=== PATIENT | male | born 1990 | race Caucasian/White ===

== ENCOUNTER 2017-03-27 23:03 | Emergency (ER) | payer MEDICAID ==
[~2017-03-27 23:03] MED LIST: ALBUTEROL17 GM INH; BACTRIM DS TABL1 TA1 PO; BACTRIM DS TABL1 TAB PO; CLARITIN10 MG PO; DEPAKOTE (UD)250 M1 DOB; DEPAKOTE PO; DOXYCYCLINE PO; FAMOTIDINE PO; FLEXERIL10 MG PO; IBUPROFEN PO; KEFLEX PO; KEFLEX500 MG PO; LORATADINE; LORATADINE PO; LORTAB 5/500 TA1 TA1 PO; NO MEDICATIONS; PERCOCET5/325 PO; PHENERGAN PO; PROBIOTIC1 EACH PO; TETRACYCLINE PO; ULTRAM PO; VICODIN 5/500 T1 TAB PO; VISTARIL PO; VOLTAREN75 MG PO; ZEGERID 20 MG C1 CAP PO; ZEGERID OTC 201 EACH PO; ZITHROMAX500 MG PO; ZOVIRAX800 MG PO
[2017-03-28 00:21] LABS: URINE SOURCE CLEAN CATCH
[2017-03-28 00:29] LABS: URINE APPEARANCE CLEAR; URINE BILIRUBIN NEG (NEG); URINE BLOOD 1+ (NEG); URINE COLOR YELLOW; URINE GLUCOSE NEG (NEG); URINE KETONE TRACE (NEG); URINE LEUKOCYTE ESTERASE NEG (NEG); URINE NITRATE NEG (NEG); URINE PROTEIN 1+ (NEG); URINE SPECIFIC GRAVITY 1.016 (1.003-1.035)
[2017-03-28 00:32] LABS: URINE BACTERIA AUWI NEG (NEGATIVE); URINE SQUAMOUS EPITHELIAL CELL NONE SEEN /[HPF]; UWBCS1 AUWI 0-2 (0-5)
[2017-03-28 00:33] LABS: CULTURE INDICATED? NO
[2017-03-28 00:39] LABS: AMPHETAMINE POS (NEG); BARBITURATES NEG (NEG); BENZODIAZEPINES NEG (NEG); COCAINE NEG (NEG); MARIJUANA POS (NEG); OPIATES POS (NEG); TRICYCLIC ANTIDEPRESSANTS NEG (NEG); U METHADONE NEG (NEG)
[2017-03-28 00:45] LABS: BLOOD UREA NITROGEN 7 mg/dL (9-23); CALCIUM SERUM 9.2 mg/dL (8.4-10.2); CARBON DIOXIDE 24 mmol/L (22-31); CHLORIDE 101 mmol/L (100-111); DEPAKENE (VALPROIC ACID) 47 ug/mL (50-125); GLUCOSE FASTING 79 mg/dL (70-110); POTASSIUM 3.8 mmol/L (3.5-5.1); SODIUM 136 mmol/L (135-145)
[2017-03-28 00:47] LABS: ALCOHOL BLOOD <5 mg/dL (0)
== END 2017-03-28 03:16 | disposition home or self-care (01) ==
LOC: CED 23:03
PROVIDERS: Emergency Medicine
DX: G40.409 Other generalized epilepsy and epileptic syndromes, not intractable, without status epilepticus (principal); F11.10 Opioid abuse, uncomplicated; J45.909 Unspecified asthma, uncomplicated; F17.210 Nicotine dependence, cigarettes, uncomplicated; Z88.0 Allergy status to penicillin; Z88.2 Allergy status to sulfonamides; Z88.6 Allergy status to analgesic agent; Z88.1 Allergy status to other antibiotic agents
CPT/HCPCS: 36415; 80048; 80164; 80307; 81003; 99284; G0480